=== PATIENT | female | born 2000 | race Caucasian/White ===

== ENCOUNTER 2018-08-15 04:35 | Inpatient (IN) | payer MEDICAID ==
[2018-08-15] MEDS ORDERED: MINERAL OIL LIGHT 10 ML VIAL TOP (05:00)
[2018-08-15] MEDS ORDERED: IBUPROFEN 600 MG TAB PO (05:00)
[2018-08-15] MEDS ORDERED: CARBOPROST 250 MCG INJ IM ×2 (05:00→16:00)
[2018-08-15] MEDS ORDERED: BUTORPHANOL 2 MG INJ IV (05:00)
[2018-08-15] MEDS ORDERED: METHYLERGONOVINE 0.2 MG INJ IM ×2 (05:00→16:00)
[2018-08-15] MEDS ORDERED: OXYCODONE/ASPIRIN (4.88/325) TAB PO ×3 (05:00→16:00)
[2018-08-15] MEDS ORDERED: LIDOCAINE 1% (MPF) 30 ML INJ INJ (05:00)
[2018-08-15] MEDS ORDERED: DEXTROSE 5%-LR 1,000 ML IV (05:00)
[2018-08-15] MEDS ORDERED: MISOPROSTOL 200 MCG TAB PR ×2 (05:00→16:00)
[2018-08-15] MEDS ORDERED: OXYTOCIN 30 UNITS/LR 500 ML IV ×2 (05:00→16:00)
[2018-08-15] MEDS: LACTATED RINGER'S 1,000 ML IV ×3 (05:37→18:32)
[2018-08-15 05:44] LABS: ADD MAN DIFF? NO
[2018-08-15 05:51] LABS: BASOPHILS % 0.4 % (0.0-2.0); EOSINOPHILS # 0.1 10^3/ul (0.0-0.5); EOSINOPHILS % 1.1 % (0.0-7.0); HEMATOCRIT 34.2 % (37.0-47.0); HEMOGLOBIN 11.3 g/dl (12.0-16.0); LYMPHOCYTES # 1.8 10^3/ul (0.8-2.9); LYMPHOCYTES % 16.8 % (18.0-55.0); MEAN CORPUSCULAR HEMOGLOBIN 29.5 pg (29.0-33.0); MEAN CORPUSCULAR VOLUME 89.3 fl (72.0-104.0); MEAN PLATELET VOLUME 10.7 fl (7.4-10.4); MONOCYTE # 0.9 10^3/ul (0.3-0.9); MONOCYTES % 7.8 % (0.0-13.0); NEUTROPHIL # 8.1 10^3/ul (1.6-7.5); NEUTROPHILS % 73.5 % (30.0-74.0); PLATELET COUNT 292 10^3/UL (140-415); RED BLOOD COUNT 3.83 10^6/ul (4.20-5.40); RED CELL DISTRIBUTION WIDTH 13.2 % (11.5-14.5)
[2018-08-15 06:08] LABS: AMPHETAMINE/METHAMPHETAMINE Negative (NEGATIVE); BARBITURATES Negative (NEGATIVE); BENZODIAZEPINES Negative (NEGATIVE); CANNABINOIDS Negative (NEGATIVE); COCAINE Negative (NEGATIVE); OPIATES Negative (NEGATIVE)
[2018-08-15 06:10] LABS: INR 0.89; PROTIME 12.1 Sec (11.9-14.9); PT RATIO 0.9
[2018-08-15 06:11] LABS: PARTIAL THROMBOPLASTIN TIME 26.5 Sec (23.0-35.0)
[2018-08-15 06:13] LABS: GLUCOSE 84 mg/dl (70-220)
[2018-08-15 06:19] LABS: ADD UMIC YES; UR ASCORBIC ACID NEGATIVE (NEGATIVE); UR BACTERIA FEW /HPF (NONE SEEN); UR BILIRUBIN (Dip) NEGATIVE (NEGATIVE); UR BLOOD (Dip) NEGATIVE (NEGATIVE); UR CLARITY CLEAR (CLEAR); UR COLOR YELLOW (YELLOW); UR GLUCOSE (Dip) NEGATIVE (NEGATIVE); UR KETONES (Dip) NEGATIVE (NEGATIVE); UR LEUKOCYTE ESTERASE (Dip) 3+ Leu/ul (NEGATIVE); UR NITRITE (Dip) NEGATIVE (NEGATIVE); UR RBC 4 /HPF (0-5); UR SQUAMOUS EPITHELIAL CELL FEW /HPF (FEW); UR TOTAL PROTEIN (Dip) NEGATIVE (NEGATIVE); UR UROBILINOGEN (Dip) NEGATIVE (NEGATIVE); UR WBC 7 /HPF (0-5)
[2018-08-15] MEDS ORDERED: FENTAnyl 2MCG/ML-ROPIV 0.2% 100 ML (06:39)
[2018-08-15 07:06] LABS: HEPATITIS B SURFACE ANTIGEN NEGATIVE (NEGATIVE)
[2018-08-15] MEDS ORDERED: NALOXONE (0.4 MG/ML) INJ IV (07:30)
[2018-08-15] MEDS ORDERED: FENTAnyl 2MCG/ML-ROPIV 0.2% 100 ML BAG EPI (07:30)
[2018-08-15] MEDS: ROPIVACAINE 0.2% 100ML BAG EPI (12:43)
[2018-08-15] MEDS: OXYTOCIN 30 UNITS/LR 500 ML IV ×2 (13:30→13:40)
[2018-08-15] MEDS: SOD CHLORIDE 0.9% 1,000 ML IV (15:07)
[2018-08-15] MEDS: CEFTRIAXONE 1 GM/50 ML (PMX) 50 ML IVPB (15:07)
[2018-08-15] MEDS ORDERED: ZOLPIDEM 5 MG TAB PO (16:00)
[2018-08-15 16:15] LABS: RAPID PLASMA REAGIN NONREACTIVE (NR)
[2018-08-15] MEDS: IBUPROFEN 600 MG TAB PO ×2 (17:23→23:37)
[2018-08-15] MEDS: BENZOCAINE 20% 56 ML SPRAY TOP (17:23)
[2018-08-15] MEDS: LANOLIN HPA 1 PKT TOP (17:23)
[2018-08-15] MEDS: WITCH HAZEL/GLYCERIN PAD PR (17:24)
[2018-08-15] MEDS: SENNA/DOCUSATE NA (8.6MG/50MG) TAB PO (21:17)
[2018-08-16] MEDS: IBUPROFEN 600 MG TAB PO ×4 (05:40→23:47)
[2018-08-16 06:52] LABS: ADD MAN DIFF? NO
[2018-08-16 06:56] LABS: BASOPHILS % 0.3 % (0.0-2.0); EOSINOPHILS # 0.1 10^3/ul (0.0-0.5); EOSINOPHILS % 0.8 % (0.0-7.0); HEMOGLOBIN 11.3 g/dl (12.0-16.0); LYMPHOCYTES # 2.6 10^3/ul (0.8-2.9); LYMPHOCYTES % 19.1 % (18.0-55.0); MEAN CORPUSCULAR HEMOGLOBIN 29.2 pg (29.0-33.0); MEAN CORPUSCULAR HGB CONC 32.3 g/dl (32.0-37.0); MEAN CORPUSCULAR VOLUME 90.4 fl (72.0-104.0); MEAN PLATELET VOLUME 10.9 fl (7.4-10.4); MONOCYTE # 1.3 10^3/ul (0.3-0.9); MONOCYTES % 9.5 % (0.0-13.0); NEUTROPHIL # 9.6 10^3/ul (1.6-7.5); NEUTROPHILS % 69.9 % (30.0-74.0); PLATELET COUNT 303 10^3/UL (140-415); RED BLOOD COUNT 3.87 10^6/ul (4.20-5.40); RED CELL DISTRIBUTION WIDTH 13.4 % (11.5-14.5)
[2018-08-16 06:56] LABS: WHITE BLOOD COUNT 13.7 10^3/ul (4.8-10.8)
[2018-08-16] MEDS: SENNA/DOCUSATE NA (8.6MG/50MG) TAB PO ×2 (09:46→22:13)
[2018-08-17] MEDS: IBUPROFEN 600 MG TAB PO ×2 (05:59→12:16)
[2018-08-17] MEDS: SENNA/DOCUSATE NA (8.6MG/50MG) TAB PO (08:59)
[2018-08-17] MEDS: DIPHTH/TET/ACEL PERTUSS (ADULT) 0.5 ML VIAL IM* (09:00)
== END 2018-08-17 13:41 | disposition home or self-care (01) | DRG 807 ==
LOC: OBT 04:35 → L-D 04:35 → OBT 05:13 → L-D 05:00 → PP1 15:35
PROVIDERS: Obstetrics & Gynecology
PROC: 10E0XZZ Delivery of Products of Conception, External Approach (ICD-10-PCS; principal; 2018-08-15)
PROC: 0KQM0ZZ Repair Perineum Muscle, Open Approach (ICD-10-PCS; 2018-08-15)
PROC: 4A1HXCZ Monitoring of Products of Conception, Cardiac Rate, External Approach (ICD-10-PCS; 2018-08-15)
PROC: 3E0234Z Introduction of Serum, Toxoid and Vaccine into Muscle, Percutaneous Approach (ICD-10-PCS; 2018-08-17)
DX: O48.0 Post-term pregnancy (principal); Z37.0 Single live birth; Z3A.40 40 weeks gestation of pregnancy; O70.1 Second degree perineal laceration during delivery; O69.81X0 Labor and delivery complicated by cord around neck, without compression, not applicable or unspecified; Z23 Encounter for immunization
CPT/HCPCS: 62319; 76815; 76818; 80307; 81001; 82947; 85025; 85610; 85730; 86592; 86850; 86900; 86901; 87340; 90715